=== PATIENT | female | born 1980 | race Caucasian/White ===

== ENCOUNTER → 2019-11-18 | Outpatient (CLI) | payer OTHER ==
[~2019-11-18] MED LIST: CEPH500 PO; ESCI20; ESOM20; FAMO40 PO; FLUC150A PO; HYDACE5 PO; OXYACE5T PO; PROM25 PO; RXHYDACE PO; SULTRIDS PO; TRAZ50; VALA500
[2019-11-20 15:07] LABS: HPV 16 Negative (Negative); HPV 18 Negative (Negative); HPV OTHER HR TYPES Negative (Negative)
== END | disposition home or self-care (01) ==
LOC: LAB SHORT 16:51 → LAB 16:51
PROVIDERS: Obstetrics & Gynecology
DX: Z12.4 Encounter for screening for malignant neoplasm of cervix (principal)
CPT/HCPCS: 87624; G0123